=== PATIENT | female | born 1940 | race Two or more races ===

== ENCOUNTER 2018-07-12 05:41 | Day surgery (SDC) | payer OTHER ==
[~2018-07-12 05:41] MED LIST: INDERAL LA80 MG PO; PREVACID30 M1 PO; SINGULAIR10 MG PO; TRAMADOL HCL50 MG PO; ZANTAC300 MG PO
[2018-07-12] MEDS ORDERED: ULTRACET PO (09:06)
[2018-07-12] MEDS ORDERED: MACROBID 100 M100 MG PO (09:07)
== END 2018-07-12 11:45 | disposition home or self-care (01) ==
LOC: CIR.AMB 05:41
DX: N39.3 Stress incontinence (female) (male) (principal); N81.6 Rectocele; N81.5 Vaginal enterocele
CPT/HCPCS: 45560; 57210; 57288; C1771

== ENCOUNTER → 2020-07-16 | Day surgery (SDC) | payer OTHER ==
[~2020-07-16] MED LIST changes: +MACROBID 100 M100 MG PO; +ULTRACET PO
== END | disposition home or self-care (01) ==
LOC: ADM 07-09 11:00 → CIR.AMB 09:05
PROVIDERS: ATTEND Obstetrics & Gynecology Gynecology
DX: N81.5 Vaginal enterocele (principal); N81.6 Rectocele; Z20.822 Contact with and (suspected) exposure to COVID-19